=== PATIENT | male | born 1965 | race Hispanic/Latino ===

== ENCOUNTER 2018-11-22 03:12 | Inpatient (IN) | payer SELFPAY ==
[~2018-11-22] VITALS: Ht 170.2 cm; Wt 113.4 kg
[2018-11-22] MEDS ORDERED: ONDANSETRON HCL 4 MG/2 ML VIAL ONE ×2 (03:21→05:25)
[2018-11-22] MEDS ORDERED: MORPHINE SULFATE 4 MG/1ML SYG ONE ×2 (03:30→05:26)
[2018-11-22 03:40] LABS: BASOPHILS % (AUTO) 0.4 % (0.0-5.0); EOSINOPHILS % (AUTO) 0.2 % (0.0-8.0); HEMATOCRIT 53.4 % (42-54); LYMPHOCYTES % (AUTO) 8.6 % (21.0-51.0); MEAN CORPUSCULAR HEMOGLOBIN 34.7 pg (27.0-33.0); MEAN CORPUSCULAR HGB CONC 34.7 g/dL (32.0-36.0); MONOCYTES % (AUTO) 9.4 % (3.0-13.0); NEUTROPHILS % (AUTO) 81.4 % (40.0-77.0); PLATELET COUNT (AUTO) 280 K/uL (130-400); RED BLOOD CELL COUNT(AUTO) 5.34 MIL/uL (4.50-6.20); RED CELL DISTRIBUTION WIDTH 13.8 % (11.0-15.5)
[2018-11-22 03:46] LABS: POTASSIUM 3.6 mmol/L (3.5-5.1)
[2018-11-22 03:50] LABS: ALBUMIN 3.3 g/dL (3.5-5.0); BILIRUBIN,TOTAL 3.4 mg/dL (0.2-1.0)
[2018-11-22 03:54] LABS: APPEARANCE,URINE Turbid (CLEAR); BILIRUBIN,URINE Small (NEGATIVE); COLOR,URINE Dark Yellow (YELLOW); GLUCOSE, URINE (UA) 500 mg/dL (NEGATIVE); KETONES,URINE 15 mg/dL (NEGATIVE); LEUKOCYTE ESTERASE ,URINE Negative (NEGATIVE); NITRATE,URINE Negative (NEGATIVE); OCCULT BLOOD,URINE Negative (NEGATIVE); PH,URINE 8.5 (5.0-8.0); PROTEIN,URINE Trace mg/dL (NEGATIVE)
[2018-11-22 04:02] LABS: AMPHET/METH SCREEN,URINE NEGATIVE (NEGATIVE); BARBITURATE SCREEN, URINE NEGATIVE (NEGATIVE); BENZODIAZEPINES SCREEN,URINE NEGATIVE (NEGATIVE); CANNABINOID SCREEN,URINE POSITIVE (NEGATIVE); COCAINE SCREEN,URINE NEGATIVE (NEGATIVE); OPIATE SCREEN,URINE NEGATIVE (NEGATIVE); PHENCYCLIDINE SCREEN,URINE NEGATIVE (NEGATIVE)
[2018-11-22 04:08] LABS: AMORPHOUS SEDIMENT,UR Many /LPF (None Seen); BACTERIA,URINE Few /HPF (None Seen); MUCUS,URINE Moderate LPF (None Seen); RBC,URINE None Seen /HPF (0-1); SQUAMOUS EPITHELIAL CELL,UR Few /HPF (0-2); WBC,URINE None Seen /HPF (0-1)
[2018-11-22] MEDS ORDERED: ZOSYN 3.375GM+NS 50ML 50 ML IV ONE (05:26)
[2018-11-22] MEDS ORDERED: MORPHINE SULFATE 2 MG/ML 1ML SYG IV PRN (07:30)
[2018-11-22] MEDS ORDERED: ACETAMINOPHEN 325 MG TAB PO PRN (07:30)
[2018-11-22] MEDS ORDERED: MORPHINE SULFATE 4 MG/1ML SYG IV PRN (07:30)
[2018-11-22] MEDS ORDERED: LACTULOSE 20 GM/30 ML UDCUP PO PRN ×2 (07:30→13:45)
[2018-11-22] MEDS ORDERED: ONDANSETRON HCL 4 MG/2 ML VIAL IV PRN (07:30)
[2018-11-22] MEDS ORDERED: METOPROLOL TARTRATE 1 MG/ML 5ML VIAL IV PRN (07:45)
[2018-11-22] MEDS ORDERED: HYDRALAZINE HCL 20 MG/ML VIAL IM PRN (07:45)
[2018-11-22] MEDS: SODIUM CHLORIDE 0.9% 1000ML 1,000 ML IV SCH ×2 (08:30→14:05)
[2018-11-22 08:36] VITALS: BP 142/99
[2018-11-22] MEDS: METOPROLOL TARTRATE 25 MG TAB PO SCH ×2 (10:24→21:43)
[2018-11-22] MEDS: FAMOTIDINE/PF 20 MG/2 ML VIAL IV SCH ×2 (10:24→21:43)
[2018-11-22] MEDS: ENOXAPARIN SODIUM 40 MG/0.4 ML SYRINGE SQ SCH (10:26)
[2018-11-22 11:20] VITALS: BP 142/78
[2018-11-22] MEDS: INSULIN HUMULIN R 100 UNIT/ML 3ML SQ SCH ×3 (11:30→21:00)
--- NOTE | 2018-11-22 13:18 | NUR ---
DCP CM met with pt discussed dc plans. Pt is independent prior to admission, lives at home w/spouse. Denies any equipments/services. Pt feels safe to go back home, still works and drives, spouse able to assist with transportation and needs as necessary. Pt is a self pay, currently does not see a pcp, given [facility] assisting. DC plan to home once stable. CM to cont to follow up. Addendum: 11/22/18 at 1319 by CLIFTON GUADARRAMA LVN CM Amended: Links added.
[2018-11-22] MEDS ORDERED: LORAZEPAM 0.5 MG TABLET PO PRN (13:45)
[2018-11-22] MEDS: ZOSYN 3.375GM+NS 50ML 50 ML IV SCH ×2 (13:59→21:43)
[2018-11-22 17:17] VITALS: BP 113/67
[2018-11-22 19:00] VITALS: BP 119/68
[2018-11-22 23:00] VITALS: BP 117/78
[2018-11-23 03:00] VITALS: BP 115/65
[2018-11-23 05:03] LABS: MEAN CORPUSCULAR HEMOGLOBIN 34.4 pg (27.0-33.0); MEAN CORPUSCULAR HGB CONC 33.9 g/dL (32.0-36.0); MEAN CORPUSCULAR VOLUME 101.6 fL (79-99); PLATELET COUNT (AUTO) 278 K/uL (130-400); RED BLOOD CELL COUNT(AUTO) 4.92 MIL/uL (4.50-6.20); RED CELL DISTRIBUTION WIDTH 13.8 % (11.0-15.5)
[2018-11-23] MEDS: ZOSYN 3.375GM+NS 50ML 50 ML IV SCH ×3 (05:04→20:51)
[2018-11-23 05:16] LABS: ALBUMIN 2.5 g/dL (3.5-5.0); BILIRUBIN,TOTAL 9.1 mg/dL (0.2-1.0); CREATININE 1.2 mg/dL (0.5-1.5); POTASSIUM 4.1 mmol/L (3.5-5.1)
[2018-11-23 05:30] LABS: HEMOGLOBIN A1C 7.4 % (4.0-6.0)
[2018-11-23] MEDS: INSULIN HUMULIN R 100 UNIT/ML 3ML SQ SCH ×4 (06:43→20:51)
[2018-11-23 07:00] VITALS: BP 119/72
[2018-11-23] MEDS: SODIUM CHLORIDE 0.9% 1000ML 1,000 ML IV SCH ×4 (08:42→23:19)
[2018-11-23] MEDS: FAMOTIDINE/PF 20 MG/2 ML VIAL IV SCH ×2 (08:43→20:50)
[2018-11-23] MEDS: METOPROLOL TARTRATE 25 MG TAB PO SCH ×2 (08:43→20:51)
[2018-11-23] MEDS: ENOXAPARIN SODIUM 40 MG/0.4 ML SYRINGE SQ SCH (08:55)
--- NOTE | 2018-11-23 08:55 | NUR ---
LOVENOX HOLD LOVENOX FOR POSSIBLE PENDING PROCEDURE.
[2018-11-23 11:00] VITALS: BP 114/77
[2018-11-23] MEDS ORDERED: METRONIDAZOLE 500MG/100ML BAG 100 ML IV SCH (14:00)
[2018-11-23 16:00] VITALS: BP 123/76
[2018-11-23 20:00] VITALS: BP 125/71
[2018-11-23 23:29] VITALS: BP 129/79
[2018-11-24] VITALS (7 sets, daily range): BP systolic 120–151; BP diastolic 62–98
[2018-11-24 05:02] LABS: HEMATOCRIT 49.1 % (42-54); MEAN CORPUSCULAR HEMOGLOBIN 34.8 pg (27.0-33.0); MEAN CORPUSCULAR HGB CONC 34.2 g/dL (32.0-36.0); MEAN CORPUSCULAR VOLUME 101.9 fL (79-99); PLATELET COUNT (AUTO) 258 K/uL (130-400); RED BLOOD CELL COUNT(AUTO) 4.82 MIL/uL (4.50-6.20); RED CELL DISTRIBUTION WIDTH 14.2 % (11.0-15.5); WHITE BLOOD COUNT (AUTO) 8.2 K/uL (4.8-10.8)
[2018-11-24 05:35] LABS: ALBUMIN 2.4 g/dL (3.5-5.0); BILIRUBIN,TOTAL 7.3 mg/dL (0.2-1.0); POTASSIUM 4.6 mmol/L (3.5-5.1); TOTAL PROTEIN, SERUM 7.2 g/dL (6.0-8.3)
[2018-11-24] MEDS: INSULIN HUMULIN R 100 UNIT/ML 3ML SQ SCH ×4 (06:02→20:16)
[2018-11-24] MEDS: ZOSYN 3.375GM+NS 50ML 50 ML IV SCH ×3 (06:03→20:12)
[2018-11-24] MEDS: SODIUM CHLORIDE 0.9% 1000ML 1,000 ML IV SCH (06:04)
[2018-11-24] MEDS: METOPROLOL TARTRATE 25 MG TAB PO SCH ×2 (08:55→20:12)
[2018-11-24] MEDS: FAMOTIDINE/PF 20 MG/2 ML VIAL IV SCH (08:55)
[2018-11-24] MEDS: ENOXAPARIN SODIUM 40 MG/0.4 ML SYRINGE SQ SCH (08:56)
--- NOTE | 2018-11-24 17:17 | NUR ---
Dr. Mishra it to see pt. states MRCP shows no obstruction in the common bile duct, Dr. Atwood will need to address.
--- NOTE | 2018-11-24 17:45 | NUR ---
Notified Dr. Atwood of [facility], Dr. Mishra came and reviewed the MRCP and Hida scan results and stated that the surgeon needed to see the pt as there were no stones in the common bile duct. stated ok.
[2018-11-25 03:47] VITALS: BP 135/94
[2018-11-25 05:05] LABS: HEMATOCRIT 48.4 % (42-54); MEAN CORPUSCULAR HEMOGLOBIN 34.3 pg (27.0-33.0); NUCLEATED RED BLOOD CELLS 0.1 % (0.0-0.19); PLATELET COUNT (AUTO) 287 K/uL (130-400); RED BLOOD CELL COUNT(AUTO) 4.79 MIL/uL (4.50-6.20); RED CELL DISTRIBUTION WIDTH 14.1 % (11.0-15.5); WHITE BLOOD COUNT (AUTO) 7.6 K/uL (4.8-10.8)
[2018-11-25 05:37] LABS: ALBUMIN 2.4 g/dL (3.5-5.0); BILIRUBIN,TOTAL 4.4 mg/dL (0.2-1.0); CREATININE 1.2 mg/dL (0.5-1.5); POTASSIUM 4.1 mmol/L (3.5-5.1); TOTAL PROTEIN, SERUM 7.2 g/dL (6.0-8.3)
[2018-11-25] MEDS: ZOSYN 3.375GM+NS 50ML 50 ML IV SCH ×3 (05:54→20:58)
[2018-11-25] MEDS: INSULIN HUMULIN R 100 UNIT/ML 3ML SQ SCH ×4 (05:55→21:00)
[2018-11-25 08:00] VITALS: BP 115/86
[2018-11-25] MEDS: METOPROLOL TARTRATE 25 MG TAB PO SCH ×2 (09:45→20:58)
[2018-11-25] MEDS: ENOXAPARIN SODIUM 40 MG/0.4 ML SYRINGE SQ SCH (09:46)
[2018-11-25 12:00] VITALS: BP 135/90
[2018-11-25 16:00] VITALS: BP 121/79
[2018-11-25 19:34] VITALS: BP 136/88
[2018-11-26 00:22] VITALS: BP 128/77
[2018-11-26 04:19] VITALS: BP 136/91
[2018-11-26] MEDS: ZOSYN 3.375GM+NS 50ML 50 ML IV SCH (05:19)
[2018-11-26 06:17] LABS: HEMATOCRIT 50.7 % (42-54); MEAN CORPUSCULAR HEMOGLOBIN 35.1 pg (27.0-33.0); MEAN CORPUSCULAR VOLUME 100.1 fL (79-99); PLATELET COUNT (AUTO) 282 K/uL (130-400); RED BLOOD CELL COUNT(AUTO) 5.07 MIL/uL (4.50-6.20); RED CELL DISTRIBUTION WIDTH 14.2 % (11.0-15.5)
[2018-11-26 06:35] LABS: ALBUMIN 2.5 g/dL (3.5-5.0); BILIRUBIN,TOTAL 2.8 mg/dL (0.2-1.0); CREATININE 0.9 mg/dL (0.5-1.5); POTASSIUM 3.6 mmol/L (3.5-5.1); TOTAL PROTEIN, SERUM 7.7 g/dL (6.0-8.3)
[2018-11-26 07:00] VITALS: BP_SYST 114; BP_SYST 176; BP_DIAS 56; BP_DIAS 96
[2018-11-26] MEDS: INSULIN HUMULIN R 100 UNIT/ML 3ML SQ SCH (07:30)
[2018-11-26] MEDS ORDERED: METF500S7 PO (08:04)
[2018-11-26] MEDS ORDERED: METO25 PO (08:04)
[2018-11-26] MEDS ORDERED: METFORMIN HCL 500 MG TABLET PO SCH (09:00)
[2018-11-26] MEDS: METOPROLOL TARTRATE 25 MG TAB PO SCH (10:09)
[2018-11-26] MEDS: ENOXAPARIN SODIUM 40 MG/0.4 ML SYRINGE SQ SCH (10:10)
== END 2018-11-26 11:30 | disposition home or self-care (01) | DRG 445 ==
LOC: EDH 03:12 → EDHIP 03:13 → 3BH 08:18
PROVIDERS: ADMIT Internal Medicine; ATTEND Internal Medicine
DX: K80.00 Calculus of gallbladder with acute cholecystitis without obstruction (principal); E44.0 Moderate protein-calorie malnutrition; E87.1 Hypo-osmolality and hyponatremia; E11.65 Type 2 diabetes mellitus with hyperglycemia; E66.01 Morbid (severe) obesity due to excess calories; I10 Essential (primary) hypertension; K59.00 Constipation, unspecified; K76.0 Fatty (change of) liver, not elsewhere classified; K82.8 Other specified diseases of gallbladder; Z91.19 Patient's noncompliance with other medical treatment and regimen; Z68.39 Body mass index [BMI] 39.0-39.9, adult
CPT/HCPCS: 36415; 74176; 74181; 78226; 80053; 80305; 81001; 82948; 83036; 83690; 84484; 85025; 85027; 93005; A9537; G0378; G0480; J1650; J2270; J2405; J2543; J3490; J7030

== ENCOUNTER 2021-09-07 22:17 | Emergency (ER) | payer BC, OTHER ==
[~2021-09-07] VITALS: Ht 172.7 cm; Wt 106.6 kg
[~2021-09-07 22:17] MED LIST: METF500S7 PO; METO25 PO
[2021-09-07 22:39] LABS: BASOPHILS % (AUTO) 0.4 % (0.0-5.0); EOSINOPHILS % (AUTO) 0.3 % (0.0-8.0); HEMATOCRIT 51.7 % (42-54); LYMPHOCYTES % (AUTO) 8.1 % (21.0-51.0); MEAN CORPUSCULAR HEMOGLOBIN 30.3 pg (27.0-33.0); MEAN CORPUSCULAR HGB CONC 32.7 g/dL (32.0-36.0); MEAN CORPUSCULAR VOLUME 92.8 fL (79-99); MONOCYTES % (AUTO) 4.4 % (3.0-13.0); NEUTROPHILS % (AUTO) 86.4 % (40.0-77.0); PLATELET COUNT (AUTO) 272 K/uL (130-400); RED BLOOD CELL COUNT(AUTO) 5.57 MIL/uL (4.50-6.20); WHITE BLOOD COUNT (AUTO) 15.3 K/uL (4.8-10.8)
[2021-09-07 23:05] VITALS: BP 150/87
[2021-09-07 23:09] LABS: POTASSIUM 4.4 mmol/L (3.5-5.1)
[2021-09-07 23:21] LABS: ALBUMIN 3.7 g/dL (3.5-5.0); BILIRUBIN,TOTAL 0.7 mg/dL (0.2-1.0); CREATININE 0.9 mg/dL (0.5-1.5); TOTAL PROTEIN, SERUM 8.4 g/dL (6.0-8.3)
[2021-09-08] MEDS ORDERED: KETOROLAC 30MG VIAL (30MG/ML) IV ONE (01:00)
[2021-09-08] MEDS ORDERED: BISACODYL 5 MG TABLET.DR PO ONE (01:10)
[2021-09-08 01:36] LABS: APPEARANCE,URINE CLOUDY (CLEAR); BILIRUBIN,URINE NEGATIVE (NEGATIVE); COLOR,URINE YELLOW (YELLOW); GLUCOSE, URINE (UA) 100 mg/dL (NEGATIVE); KETONES,URINE 40 mg/dL (NEGATIVE); LEUKOCYTE ESTERASE ,URINE NEGATIVE (NEGATIVE); NITRATE,URINE NEGATIVE (NEGATIVE); OCCULT BLOOD,URINE NEGATIVE (NEGATIVE); PROTEIN,URINE NEGATIVE (NEGATIVE); UROBILINOGEN,URINE 0.2 mg/dL (0.2-1.0)
[2021-09-08] MEDS ORDERED: BISACODYL 10 MG SUPP.RECT RC ONE ×2 (01:43)
[2021-09-08 01:48] LABS: RBC,URINE 0-1 /HPF (0-1)
[2021-09-08 01:49] LABS: AMORPHOUS SEDIMENT,UR Many /LPF (None Seen); BACTERIA,URINE Few /HPF (None Seen); SQUAMOUS EPITHELIAL CELL,UR 0-2 /HPF (0-2); WBC,URINE 0-1 /HPF (0-1)
[2021-09-08] MEDS ORDERED: POLY17PO4 PO (04:28)
[2021-09-08] MEDS ORDERED: FAMO-136 PO (04:28)
== END 2021-09-08 04:59 | disposition home or self-care (01) ==
LOC: EDH 22:17
DX: K80.20 Calculus of gallbladder without cholecystitis without obstruction (principal); R10.84 Generalized abdominal pain; R73.9 Hyperglycemia, unspecified; M25.512 Pain in left shoulder; Z79.84 Long term (current) use of oral hypoglycemic drugs
CPT/HCPCS: 36415; 74176; 80053; 81001; 82550; 83690; 83880; 84484; 85025; 93005; 96374; 99284; J1885

== ENCOUNTER 2022-11-08 18:35 | Emergency (ER) | payer BC ==
[~2022-11-08] VITALS: Ht 172.7 cm; Wt 104.3 kg
[~2022-11-08 18:35] MED LIST changes: +FAMO-136 PO; -METF500S7 PO; +METF500S9 PO; +POLY17PO4 PO
[2022-11-08 19:58] LABS: BASOPHILS % (AUTO) 0.6 % (0.0-5.0); HEMATOCRIT 47.9 % (42-54); LYMPHOCYTES % (AUTO) 24.5 % (21.0-51.0); MEAN CORPUSCULAR HEMOGLOBIN 32.9 pg (27.0-33.0); MEAN CORPUSCULAR HGB CONC 33.8 g/dL (32.0-36.0); MEAN CORPUSCULAR VOLUME 97.2 fL (79-99); MONOCYTES % (AUTO) 9.8 % (3.0-13.0); NEUTROPHILS % (AUTO) 61.9 % (40.0-77.0); PLATELET COUNT (AUTO) 228 K/uL (130-400); RED BLOOD CELL COUNT(AUTO) 4.93 MIL/uL (4.50-6.20); RED CELL DISTRIBUTION WIDTH 12.6 % (11.0-15.5); WHITE BLOOD COUNT (AUTO) 8.3 K/uL (4.8-10.8)
[2022-11-08 20:14] LABS: CREATININE 1.1 mg/dL (0.5-1.5); POTASSIUM 4.2 mmol/L (3.5-5.1)
[2022-11-08 20:19] LABS: ALBUMIN 3.1 g/dL (3.5-5.0); TOTAL PROTEIN, SERUM 7.2 g/dL (6.0-8.3)
[2022-11-08 20:26] LABS: B-TYPE NATRIURETIC PEPTIDE 10 pg/mL (0-100)
[2022-11-08 20:30] VITALS: BP 128/81
[2022-11-08] MEDS ORDERED: ACET-66 PO (20:36)
== END 2022-11-08 20:54 | disposition home or self-care (01) ==
LOC: EDH 18:35
DX: R60.0 Localized edema (principal); I10 Essential (primary) hypertension; Z79.84 Long term (current) use of oral hypoglycemic drugs
CPT/HCPCS: 36415; 71045; 80053; 83880; 85025; 93005; 93971